=== PATIENT | female | born 1940 | race Two or more races ===

== ENCOUNTER → 2018-07-03 | Day surgery (SDC) | payer OTHER ==
[2018-06-26 11:59] LABS: BASOPHILS % 0.5 % (0.0-1.0); EOSINOPHILS # (AUTO) 0.1 (0.0-0.4); EOSINOPHILS % 0.7 % (0.0-6.0); HEMATOCRIT 40.2 % (34.2-44.1); HEMOGLOBIN 13.4 g/dL (12.0-16.0); LYMPHOCYTES # (AUTO) 2.1 (1.0-3.2); MEAN CORPUSCULAR HEMOGLOBIN 30.6 pg (28-32); MEAN CORPUSCULAR HGB CONC 33.3 g/dL (31-35); MEAN CORPUSCULAR VOLUME 91.8 fL (81-99); MONOCYTES # (AUTO) 0.6 (0.2-0.8); MONOCYTES % 7.2 % (4.4-11.3); NEUTROPHILS # (AUTO) 5.3 (2.1-6.9); NEUTROPHILS % 65.2 % (38.7-80.0); PLATELET COUNT 295 x10e3/uL (140-360); RED BLOOD COUNT 4.38 x10e6/uL (3.6-5.1); RED CELL DISTRIBUTION WIDTH 12.6 % (11.7-14.4)
[2018-06-26 12:15] LABS: ANION GAP 13.7 mmol/L (8-16); BLOOD UREA NITROGEN 19 mg/dL (7-26); BUN/CREATININE RATIO 23 (6-25); CALCIUM 10.4 mg/dL (8.4-10.2); CARBON DIOXIDE 29 mmol/L (22-29); CHLORIDE 97 mmol/L (98-107); CREATININE, SERUM 0.81 mg/dL (0.57-1.11); EST GLOMERULAR FILTRATION RATE > 60 ML/MIN (60-); GLUCOSE 136 mg/dL (74-118); POTASSIUM 3.7 mmol/L (3.5-5.1); SODIUM 136 mmol/L (136-145)
--- NOTE | 2018-06-26 13:15 | Diagnostic Imaging Report ---
EXAMINATION: PA and lateral views of the chest. COMPARISON: None CLINICAL HISTORY: Preoperative evaluation, carpal tunnel syndrome DISCUSSION: Lines/tubes: None. Lungs: The lungs are well inflated and clear. No pneumonia or pulmonary edema. Pleura: No pleural effusion or pneumothorax. Heart and mediastinum: The cardiomediastinal silhouette is normal. Bones and soft tissues: No acute bony abnormalities. IMPRESSION: No acute cardiopulmonary abnormalities. Signed by: Dr. Flaco Ramirez M.D. on 06/26/2018 1:12 PM
[~2018-07-03] MED LIST: AMLODIPINE BESY10 MG PO; BUPIVACAINE HCL 0.5% INJ 30 ML VIAL INJ ONE; CEFAZOLIN SOD 1 GM/NS 50ML 50 ML IV ONE; DEXAMETHASONE SOD PHOS INJ 4 MG/ML VIAL ONE; FENTANYL CITRATE/PF 100MCG/2 ML INJ ONE; GLIMEPIRIDE2 MG PO; HYDROCHLOROTHIA25 MG PO; LIDOCAINE HCL 2% LOCAL INJ 5 ML SDV VIAL INJ ONE; LISINOPRIL10 MG PO; METFORMIN HCL500 MG PO; MUPIROCIN 2% OINT 22 GM TUBE ONE; ONDANSETRON HCL INJ 2MG/ML 2ML 2 MG/ML VIAL ONE; PHENYLEPHRINE HCL 1% 10 MG/ML VIAL ONE; PROPOFOL IV EMULSION 10 MG/ML 20 ML VIAL ONE; SEVOFLURANE INHAL SOLN 250 ML PEN BTL ONE
--- OUTSIDE RECORDS SUMMARY | 2018-07-03 05:56 | XMS REPORT | Clinical Summary ---
Author Author [facility] Address Unknown Phone Unavailable Care Team Providers Care Pond Scaler Name Role Phone Oscar Vivas MD PCP Allergies No Known Allergies Medications End Date Status Medication Sig Dispensed Refills Start Date Active amLODIPine (NORVASC) 10 TK 1 T PO QD 1 mg tablet 7 Active glimepiride (AMARYL) 2 MG TK 1 T PO QD 1 tablet 7 Active hydroCHLOROthiazide TK 1 T PO QD 1 (HYDRODIURIL) 25 MG 7 tablet Active lisinopril TK 1 T PO QD 1 (PRINIVIL,ZESTRIL) 20 mg 7 tablet Active metFORMIN (GLUCOPHAGE) TK 1 T PO 1 500 mg tablet BID 7 Active CONTOUR TEST STRIPS strip 0 test strips 8 Active MICROLET LANCET misc 0 8 Active Problems Problem Noted Date Nuclear sclerotic cataract of right eye 07/25/2017 Encounters Care Team Description Date Type Specialty Oscar Vivas MD Screening breast examination 09/04/2017 Hospital Radiology Encounter Oscar Vivas MD Screening breast examination (Primary Dx) 08/09/2017 Transcribe Access Orders Zhane James MD 07/25/2017 Anesthesia General Surgery Event Byron Montalvo MD PHACOEMULSIFICATION, CATARACT, WITH IOL IMPLANTATION RIGHT 07/25/2017 Surgery General Surgery Byron Montalvo MD Nuclear sclerotic cataract of right eye (Primary Dx) 07/25/2017 Hospital General Surgery Encounter after 07/02/2017 Family History Relation Name Status Comments Father Mother Social History Date Tobacco Use Types Packs/Day Years Used Never Smoker Smokeless Tobacco: Never Used Alcohol Use Drinks/Week oz/Week Comments No Sex Assigned at Date Recorded Not on file Industry Job Start Date Occupation Not on file Not on file Not on file Travel End Travel History Travel Start No recent travel history available. Last Filed Vital Signs Time Taken Vital Sign Reading 07/25/2017 12:15 PM CDT Blood Pressure 145/68 07/25/2017 12:15 PM CDT Pulse 70 07/25/2017 11:53 AM CDT Temperature 36.2 C (97.1 F) 07/25/2017 12:15 PM CDT Respiratory Rate 16 07/25/2017 12:15 PM CDT Oxygen Saturation 97% - Inhaled Oxygen - Concentration 07/25/2017 10:02 AM CDT Weight 55.8 kg (123 lb) - Height - 07/25/2017 10:02 AM CDT Body Mass Index 24.02 Plan of Treatment Health Maintenance Due Date Last Done Comments SHINGLES VACCINES (#1) 1991 65+ PNEUMOCOCCAL VACCINE 2006 (1 of 2 - PCV13) PNEUMOCOCCAL 2006 POLYSACCHARIDE VACCINE AGE 65 AND OVER INFLUENZA VACCINE 11/01/2017 Implants Device Identifier Shelf Expiration Date Model / Serial / Lot Implanted Type Area Manufactur er 09/30/2021 [id number] 200 / [id number] / [id number] Lens Ascrysof Aspheric Uv Absorbing Intraocula Right: Eye KELI 20.0.Od 13mmx6.0mm - [id number] - r Lens [employer] [id number] Implant [employer] Implanted: Qty: 1 on 07/25/2017 by Byron Montalvo MD Procedures Comments Procedure Name Priority Date/Time Associated Diagnosis MAMMO BREAST SCREEN Routine 09/04/2017 Screening breast TOMOSYNTHESIS BILATERAL 11:59 AM CDT examination PHACOEMULSIFICATION, 07/25/2017 Age-related nuclear CATARACT, WITH IOL 10:35 AM CDT cataract of right eye IMPLANTATION Special Needs SA60WF +20.0 POC GLUCOSE Routine 07/25/2017 9:47 AM CDT after 07/02/2017 Results * Mammo Breast Screen Tomosynthesis Bilateral (09/04/2017 11:59 AM CDT) Narrative Performed At PROCEDURE: MAMMO BREAST SCREEN TOMOSYNTHESIS BILATERAL [facility] Computer aided detection was utilized for the interpretation of the digital bilateral screening mammography with tomosynthesis. COMPARISON: 2016. DENSITY: There are scattered areas of fibroglandular density. Scattered secretory type linear microcalcification again seen bilaterally unchanged. IMPRESSION:No mammographic evidence of malignancy. RECOMMENDATION: Comparison with physical exam and annual screening mammography. BI-RADS 2: Benign findings. This facility is accredited by [employer] for Mammography. A negative x-ray report should not delay biopsy if a dominant or clinically suspicious mass is present. Not all cancers are identified by x-ray. [id number] Performing Organization Address City/State/Zipcode Phone Number [facility] [address] [place] [address] * POC glucose (07/25/2017 9:47 AM CDT) POC glucose 120 (H) 65 - 100 mg/dL [facility] [place] DEPARTMENT OF Comment: PATHOLOGY AND Meter ID: [id number] GENOMIC MEDICINE [place] Floor Desk Clerk: Maribell Cage Performing Organization Address City/State/Zipcode Phone Number [facility] [place] DEPARTMENT OF [address] [place] [address] [place] [address] PATHOLOGY AND GENOMIC MEDICINE after 07/02/2017 Insurance Payer Benefit Subscriber ID Type Phone Address Plan / Group [employer] TEX[employer] xxxxxxxxx O [facility] Advance Directives Patient has advance care planning documents on file. For more information, nicholas hidalgo contact: Rah Aden [address] [place] [address]
--- OUTSIDE RECORDS SUMMARY | 2018-07-03 05:57 | XMS REPORT ---
Author Author [facility] Address Unknown Phone Unavailable Care Team Providers Care Heating Repair Technician Name Role Phone JAVY RYAN Unavailable Unavailable Problems This patient has no known problems. Allergies, Adverse Reactions, Alerts This patient has no known allergies or adverse reactions. Medications This patient has no known medications. Results Test Description Test Time Test Comments Text Results Atomic Results Result Comments CHEST 2 VIEWS 2018-06-26 13:11:00 [place] [address] Patient Name: KARI SIFUENTES MR #: [id number] : 1940 Age/Sex: 78/F Req #: [id number] [facility] Physician: Ordered by: JAVY RYAN MD Report #: [id number] Location: OR Room/Bed: Procedure: [id number] DX/CHEST 2 VIEWS Exam Date: 06/26/18 Exam Time: 1130 REPORT STATUS: Signed EXAMINATION: PA and lateral views of the chest. COMPAR JOSE: None CLINICAL HISTORY: Preoperative evaluation, carpal tunnel syndrome DISCUSSION: Lines/tubes: None. Lungs: The lungs are well inflated and clear. No pneumonia or pulmonary edema. Pleura: No pleural effusion or pneumothorax. Heart and mediastinum: The cardiomediastinal silhouette is normal. Bones and soft tissues: No acute bony abnormalities. IMPRESSION: No acute cardiopulmonary abnormalities. Signed by: Dr. Zeina Nicole M.D. on 06/26/2018 1:12 PM Dictated By: ZEINA NICOLE MD [id number] Transcribed By: PAULA on 06/26/18 131 COPY TO: JAVY RYAN MD
[2018-07-03 09:25] VITALS: BP 124/68
--- NOTE | 2018-07-03 16:27 | Operative Report ---
DATE OF PROCEDURE: 07/03/2018 SURGEON: Lars Patterson MD PREOPERATIVE DIAGNOSIS: Left carpal tunnel syndrome. POSTOPERATIVE DIAGNOSES: 1. Left carpal tunnel syndrome. 2. Flexor tenosynovitis left wrist. PROCEDURES: 1. Left open carpal tunnel release. 2. Flexor tenosynovectomy left wrist. ANESTHESIA: General. HISTORY: The patient is a 78-year-old female with EMG-proven left carpal tunnel syndrome. Risks, benefits and alternatives of treatment were discussed with the patient. The patient is prepared to undergo the procedure as outlined. DESCRIPTION OF PROCEDURE: The patient was brought to the operating theater. After the induction of adequate general inhalation anesthesia, the patient was prepped and draped in the supine position. A time out was performed by the entire operating room team. A 2.5 cm incision was marked out in the intrathenar space. The left upper extremity was exsanguinated, and a tourniquet was inflated to a pressure of 250 mmHg. The incision was made through the skin and subcutaneous tissues and all venous tributaries were controlled with bipolar cautery. The incision was deepened through the palmar fascia until the transverse carpal ligament was identified. The ligament was sharply sectioned, taking care to protect and preserve the median nerve underlying it. After the complete width of the ligament had been transected, the distal volar forearm fascia was divided under direct view. Proliferative flexor tenosynovium was noticed to encompass the median nerve and this was radically excised. After performing this maneuver, the nerve was noted to lie adequately decompressed. The wound was copiously irrigated with bacteriostatic saline, closed with 5-0 nylon in an interrupted horizontal mattress fashion. A Marcaine field block was performed at the operative site. Tourniquet was deflated. All of the fingers pinked up nicely and a sterile bulking conforming bandage was applied to the hand and the wrist. A fiberglass splint was fashioned to maintain the wrist in a modest amount of extension. This was held in place with a loosely wrapped Lloyd wrap. The patient tolerated the procedure well and was brought to the recovery room in satisfactory condition and discharged with a postoperative instruction sheet as well as a followup appointment. Lars Patterson MD ER/MODL /[id number]
== END | disposition home or self-care (01) ==
LOC: OR 05:55
PROVIDERS: ATTEND Plastic Surgery
DX: G56.02 Carpal tunnel syndrome, left upper limb (principal); M65.842 Other synovitis and tenosynovitis, left hand; I10 Essential (primary) hypertension; E11.9 Type 2 diabetes mellitus without complications; F41.9 Anxiety disorder, unspecified; Z01.810 Encounter for preprocedural cardiovascular examination; Z01.812 Encounter for preprocedural laboratory examination; Z01.818 Encounter for other preprocedural examination; Z79.84 Long term (current) use of oral hypoglycemic drugs
CPT/HCPCS: 25115; 36415 ×2; 71046; 80048; 82948; 85025; 93005; J0690; J1100; J2001; J2370; J2405; J2704